=== PATIENT | male | born 2000 | race Caucasian/White ===

== ENCOUNTER 2018-10-04 13:03 | Emergency (ER) | payer BC ==
--- NOTE | 2018-10-04 14:11 | EDPHY ---
H & P Stated Complaint: cough x 4 days Time Seen by Provider: 10/04/18 13:13 HPI/ROS: Chief complaint: Cold symptoms History of present illness: This is an otherwise healthy 18-year-old male who presents to the emergency department for cold symptoms. He has been sick for the last 5 days. He reports tactile fevers, slight sore throat, chest congestion, a cough that causes pain in his chest, body aches and occasionally feels lightheaded. He has been using [id number] medications but symptoms persist. He denies other associated signs or symptoms including no headache or neck pain, no trouble breathing, no rash. - Medical/Surgical History Hx Asthma: No Hx Chronic Respiratory Disease: No Hx Diabetes: No Hx Cardiac Disease: No Hx Renal Disease: No Hx Cirrhosis: No Hx Alcoholism: No Hx HIV/AIDS: No Hx Splenectomy or Spleen Trauma: No Other PMH: depression - Social History Smoking Status: Current some day smoker - Physical Exam Exam: General Appearance: Alert and no distress. Eyes: Pupils equal and round no injection. ENT: Tympanic membranes, external auditory canals, external ears and surrounding soft tissue including over the mastoids are unremarkable. Nasopharynx is not injected. There is no rhinorrhea. Oropharynx is not injected. There is no edema. There is no exudate. There is no asymmetry. The uvula is midline. No elevation of the tongue. There is no hoarseness, no drooling, no trismus, no stridor. Respiratory: Chest is non tender, lungs are clear to auscultation. Cardiac: regular rate and rhythm Musculoskeletal: Neck is supple and non tender. Extremities have full range of motion and are non tender. Skin: No rashes or lesions. Neurological: Alert and oriented. No meningismus. Constitutional: Initial Vital Signs Temperature (C) 36.7 C 10/04/18 13:12 Heart Rate 81 10/04/18 13:12 Respiratory Rate 16 10/04/18 13:12 O2 Sat (%) 95 10/04/18 13:12 O2 Delivery Mode Room Air Allergies/Adverse Reactions: No Known Allergies Allergy (Unverified 10/04/18 13:11) Home Medications: Medication Instructions Recorded NK [No Known Home Meds] 10/04/18 Paroxetine ER 10/04/18 Medical Decision Making - Diagnostics Imaging Results: Imaging Impressions Chest X-Ray 10/04/18 13:50 Impression: No acute cardiopulmonary process. Imaging: I viewed and interpreted images myself ED Course/Re-evaluation: Patient seen under the supervision of my secondary supervising physician Dr. Jacob Garduno. Patient presents for cold symptoms. He is nontoxic. Chest x- ray is negative. Likely a viral syndrome. Symptomatic care is discussed. He is to follow up with a primary care doctor for recheck. Return precautions are given. The patient voiced understanding and agreement with plan. Differential Diagnosis: Included but not limited to URI, bronchitis, pneumonia, influenza, other viral syndrome Departure - Departure Disposition: Home, Routine, Self-Care Clinical Impression: Viral syndrome Condition: Good Instructions: Viral Syndrome (ED) Additional Instructions: Follow-up with a primary care doctor for continued evaluation and care Use ibuprofen 600 mg 3 times a day for the next 2-3 days Continue to use an [id number] cold medications for symptomatic care If symptoms worsen or new symptoms develop return to the emergency room for recheck Referrals: DOROTHEA RIVAS [Other] - As per Instructions
[2018-10-04 14:21] VITALS: BP 118/78
== END 2018-10-04 14:21 | disposition home or self-care (01) ==
DX: B34.9 Viral infection, unspecified (principal); F17.200 Nicotine dependence, unspecified, uncomplicated